=== PATIENT | male | born 1975 ===

== ENCOUNTER → 2019-02-18 | Outpatient (CLI) | payer BC ==
[~2019-02-18] MED LIST: BUPR100 PO; ESCI5 PO; META800 PO; Norco 5-325 Ta1 EACH PO; PROM25 PO; Zithromax250 MG PO
== END | disposition home or self-care (01) ==
LOC: PLD 07:56 → LAB SHORT 07:56
DX: D22.62 Melanocytic nevi of left upper limb, including shoulder (principal)
CPT/HCPCS: 88305